=== PATIENT | female | born 1960 | race Two or more races ===

== ENCOUNTER 2020-12-06 04:03 | Day surgery (SDC) | payer OTHER ==
[2020-12-06 07:35] VITALS: BMI 33.0
[2020-12-06] MEDS ORDERED: BUPIVACAINE HCL/PF 0.5% (5MG/ML) 10 ML VIAL ONE (07:42)
[2020-12-06] MEDS ORDERED: LIDOCAINE HCL 1%, 10 MG/ML (20ML VIAL) ONE ×2 (07:43→11:00)
[2020-12-06] MEDS ORDERED: INSULIN REGULAR HUMAN 100 UNITS/ML *VIAL SQ ONE (08:30)
[2020-12-06] MEDS ORDERED: PROMETHAZINE HCL 25 MG/1 ML VIAL IVPUSH PRN (10:37)
[2020-12-06] MEDS ORDERED: ONDANSETRON 4 MG/2 ML VIAL IVPUSH PRN (10:37)
[2020-12-06] MEDS ORDERED: oxyCODONE HCL 5 MG TABLET PO PRN (10:37)
[2020-12-06] MEDS ORDERED: LACTATED RINGERS SOLUTION 1,000 ML IV SCH (10:45)
[2020-12-06] MEDS ORDERED: MIDAZOLAM HCL 2 MG/2 ML SINGLE DOSE VIAL ONE (10:56)
[2020-12-06] MEDS ORDERED: PROPOFOL 20 ML ONE (10:56)
[2020-12-06] MEDS ORDERED: ceFAZolin SODIUM 1 GM VIAL ONE (11:14)
[2020-12-06] MEDS ORDERED: SODIUM CHLORIDE 0.9% P/F 10 ML VIAL IJ ONE (11:14)
[2020-12-06] MEDS ORDERED: ceFAZolin SODIUM 1 GM VIAL IVPB ONE (11:17)
[2020-12-06] MEDS ORDERED: LIDOCAINE HCL 1% PRESERVATIVE FREE - 30ML VIAL IJ ONE ×2 (11:20)
[2020-12-06] MEDS ORDERED: KETOROLAC TROMETHAMINE 30 MG/1 ML VIAL ONE (11:25)
[2020-12-06] MEDS ORDERED: ONDANSETRON 4 MG/2 ML VIAL ONE ×2 (12:15→13:21)
[2020-12-06] MEDS ORDERED: PROMETHAZINE HCL 25 MG/1 ML VIAL ONE (14:15)
[2020-12-06 16:50] VITALS: TEMP 97.8
[2020-12-06 17:42] VITALS: BP 125/85; PULSE 78
== END 2020-12-06 17:30 | disposition home or self-care (01) ==
LOC: JASU-SURG 04:03
PROVIDERS: ATTEND Surgery
PROC: 07B50ZX Excision of Right Axillary Lymphatic, Open Approach, Diagnostic (ICD-10-PCS; principal; 2020-12-06 09:00)
DX: C81.94 Hodgkin lymphoma, unspecified, lymph nodes of axilla and upper limb (principal)
CPT/HCPCS: 82962; 94760

== ENCOUNTER 2022-01-19 16:47 | Emergency (ER) | payer OTHER ==
[2022-01-19 17:12] VITALS: BMI 34.4
[2022-01-19] MEDS ORDERED: ONDANSETRON 4 MG/2 ML VIAL IVPB ONE (18:52)
[2022-01-19] MEDS ORDERED: SODIUM CHLORIDE 0.9% 500 ML INFUS.BAG IV ONE (18:52)
[2022-01-19] MEDS ORDERED: FAMOTIDINE 20 MG/50 ML IVPB 20 MG/50 ML MG IVPB ONE ×2 (18:54→20:37)
[2022-01-19] MEDS ORDERED: ACETAMINOPHEN 1000 MG/100 ML BAG IVPB ONE (18:54)
[2022-01-19] MEDS ORDERED: ACETAMINOPHEN INJECTION 100 ML IVPB ONE (20:37)
[2022-01-19] MEDS ORDERED: ONDANSETRON 4 MG/2 ML VIAL ONE (20:37)
[2022-01-19 21:17] LABS: BASO % 0.3 % (0-2.0); EOS % 1.3 % (0-4.5); HEMATOCRIT 38.5 % (32.4-45.2); HEMOGLOBIN 13.2 GM/dL (10.7-15.3); MCH 24.6 pg (25.7-33.7); MCHC 34.2 g/dl (32.0-36.0); MEAN PLT VOLUME 8.8 fl (7.5-11.1); MONO % 7.2 % (3.8-10.2); NEUT % 56.2 % (42.8-82.8); PLATELET COUNT 184 10^3/uL (134-434); RBC 5.35 M/mm3 (3.60-5.2); WHITE BLOOD COUNT 5.6 K/mm3 (4.0-10.0)
[2022-01-19 21:22] LABS: INR 1.05 (0.83-1.09); PROTHROMBIN TIME (PATIENT) 12.1 SEC (9.7-13.0)
[2022-01-19 21:25] LABS: ACTIVATED PTT 32.4 SECONDS (25.2-36.5)
[2022-01-19 21:34] LABS: CALCIUM 9.3 mg/dL (8.5-10.1)
[2022-01-19 21:36] LABS: ALBUMIN 3.9 g/dl (3.4-5.0); BLOOD UREA NITROGEN 16.6 mg/dL (7-18); MAGNESIUM 1.8 mg/dL (1.8-2.4)
[2022-01-19 21:39] LABS: CREATININE 0.6 mg/dL (0.55-1.3)
[2022-01-19 21:40] LABS: TOT PROT 7.1 g/dl (6.4-8.2)
[2022-01-19 21:41] LABS: BILIRUBIN,TOTAL 1.2 mg/dL (0.2-1)
[2022-01-19 21:43] LABS: LACTIC ACID 2.9 mmol/L (0.4-2.0)
[2022-01-19 23:07] VITALS: BP 143/71; PULSE 84; TEMP 97.8
[2022-01-20 02:14] LABS: URINE APPEARANCE CLEAR; URINE BILIRUBIN NEGATIVE (NEGATIVE); URINE COLOR YELLOW; URINE GLUCOSE (UA) 250 (NEGATIVE); URINE KETONE TRACE (NEGATIVE)
[2022-01-20 02:15] LABS: PH,URINE 5.5 (5.0-8.0); URINE LEUK ESTERASE NEGATIVE (NEGATIVE); URINE NITRITE NEGATIVE (NEGATIVE); URINE PROTEIN TRACE (NEGATIVE)
[2022-01-20 02:22] LABS: EPI CELLS 12.2 /uL (0-25.1); HYALINE CASTS 0.38 /uL (0-3.1); URINE BACTERIA 141.7 /uL (0-1359); URINE WBC 28.3 /uL (0-25.8)
== END 2022-01-20 03:04 | disposition home or self-care (01) ==
LOC: JER 16:47
PROC: 3E033GC Introduction of Other Therapeutic Substance into Peripheral Vein, Percutaneous Approach (ICD-10-PCS; principal; 2022-01-19)
DX: R10.13 Epigastric pain (principal); R11.2 Nausea with vomiting, unspecified
CPT/HCPCS: 0241U-QW; 36415; 71045-TC-FY; 74177-TC; 80053; 81003; 83605; 83690; 83735; 84484; 85025; 85610; 85730; 87086; 93005; 93010; 99285-25; Q9967

== ENCOUNTER 2022-03-29 22:52 | Emergency (ER) | payer OTHER ==
[2022-03-29 23:00] VITALS: BP 151/90; PULSE 88; RESP 18; TEMP 98.1; BMI 35.5
[2022-03-30] MEDS ORDERED: LIDOCAINE VISCOUS 2% ORAL/TOP 15 ML UNIT-DOSE CUP MM ONE (00:15)
[2022-03-30] MEDS ORDERED: LACTATED RINGERS SOLUTION 1000 ML INFUS.BAG IV ONE (00:15)
[2022-03-30] MEDS ORDERED: ACETAMINOPHEN 1000 MG/100 ML BAG IVPB ONE (00:15)
[2022-03-30] MEDS ORDERED: LIDOCAINE HCL 2% (20ML MULTI-DOSE VIAL) ONE (00:43)
[2022-03-30] MEDS ORDERED: ACETAMINOPHEN INJECTION 100 ML IVPB ONE (00:43)
[2022-03-30 01:13] LABS: BASO % 0.2 % (0-2.0); HEMATOCRIT 36.1 % (32.4-45.2); HEMOGLOBIN 12.3 GM/dL (10.7-15.3); LYMPH % 26.5 % (8-40); MCHC 34.2 g/dl (32.0-36.0); MEAN CELL VOLUME 73.3 fl (80-96); MEAN PLT VOLUME 8.6 fl (7.5-11.1); MONO % 6.6 % (3.8-10.2); NEUT % 65.7 % (42.8-82.8); PLATELET COUNT 191 10^3/uL (134-434); RBC 4.93 M/mm3 (3.60-5.2); WHITE BLOOD COUNT 7.8 K/mm3 (4.0-10.0)
[2022-03-30 01:34] LABS: CALCIUM 9.1 mg/dL (8.5-10.1)
[2022-03-30 01:35] LABS: ALBUMIN 3.8 g/dl (3.4-5.0); BLOOD UREA NITROGEN 10.4 mg/dL (7-18)
[2022-03-30 01:38] LABS: CREATININE 0.6 mg/dL (0.55-1.3)
[2022-03-30 01:39] LABS: TOT PROT 6.7 g/dl (6.4-8.2)
[2022-03-30 01:40] LABS: BILIRUBIN,TOTAL 1.2 mg/dL (0.2-1)
== END 2022-03-30 03:13 | disposition home or self-care (01) ==
LOC: JER 22:52
PROC: 3E033GC Introduction of Other Therapeutic Substance into Peripheral Vein, Percutaneous Approach (ICD-10-PCS; principal; 2022-03-29)
DX: R07.0 Pain in throat (principal); R19.7 Diarrhea, unspecified
CPT/HCPCS: 0241U-QW; 36415; 80053; 83690; 85025; 99284-25

== ENCOUNTER 2022-05-30 20:52 | Inpatient (IN) | payer OTHER ==
[2022-05-30] MEDS ORDERED: ONDANSETRON 4 MG/2 ML VIAL IVPUSH ONE (21:52)
[2022-05-30] MEDS ORDERED: morphine CARPU-JECT 4 MG/1 ML DISP.SYRIN IVPUSH ONE (21:52)
[2022-05-30] MEDS ORDERED: ONDANSETRON 4 MG/2 ML VIAL ONE (22:10)
[2022-05-30] MEDS ORDERED: morphine SULFATE 4 MG/ML VIAL ONE (22:10)
[2022-05-30 22:55] LABS: BASO % 0.2 % (0-2.0); EOS % 1.3 % (0-4.5); HEMATOCRIT 36.4 % (32.4-45.2); HEMOGLOBIN 12.2 GM/dL (10.7-15.3); LYMPH % 39.9 % (8-40); MCH 24.3 pg (25.7-33.7); MCHC 33.5 g/dl (32.0-36.0); MEAN CELL VOLUME 72.5 fl (80-96); MEAN PLT VOLUME 8.7 fl (7.5-11.1); MONO % 8.2 % (3.8-10.2); NEUT % 50.4 % (42.8-82.8); PLATELET COUNT 165 10^3/uL (134-434); RBC 5.02 M/mm3 (3.60-5.2); RDW 15.5 % (11.6-15.6); WHITE BLOOD COUNT 4.7 K/mm3 (4.0-10.0)
[2022-05-30 22:58] LABS: INR 1.02 (0.83-1.09); PROTHROMBIN TIME (PATIENT) 11.7 SEC (9.7-13.0)
[2022-05-30 23:00] LABS: ACTIVATED PTT 31.1 SECONDS (25.2-36.5)
[2022-05-30 23:12] LABS: CALCIUM 9.1 mg/dL (8.5-10.1)
[2022-05-30 23:13] LABS: ALBUMIN 3.8 g/dl (3.4-5.0); BLOOD UREA NITROGEN 14.6 mg/dL (7-18)
[2022-05-30 23:16] LABS: CREATININE 0.7 mg/dL (0.55-1.3)
[2022-05-30 23:17] LABS: TOT PROT 6.5 g/dl (6.4-8.2)
[2022-05-30 23:34] LABS: BILIRUBIN,TOTAL 0.9 mg/dL (0.2-1); LACTIC ACID 2.8 mmol/L (0.4-2.0)
[2022-05-30 23:37] LABS: EPI CELLS >36 /uL (0-25.1); HYALINE CASTS 2 /uL (0-3.1); URINE APPEARANCE CLEAR; URINE BACTERIA 60 /uL (0-1359); URINE BILIRUBIN NEGATIVE (NEGATIVE); URINE COLOR YELLOW; URINE GLUCOSE (UA) NEGATIVE (NEGATIVE); URINE KETONE TRACE (NEGATIVE); URINE LEUK ESTERASE TRACE (NEGATIVE); URINE NITRITE NEGATIVE (NEGATIVE); URINE PROTEIN TRACE (NEGATIVE); URINE RBC 3 /uL (0-23.9); URINE WBC 23 /uL (0-25.8)
[2022-05-31] MEDS ORDERED: SODIUM CHLORIDE 1,000 ML IV STA (00:59)
[2022-05-31] MEDS ORDERED: PANTOPRAZOLE 40 MG TABLET PO ONE ×2 (06:00→09:20)
[2022-05-31] MEDS: SODIUM CHLORIDE 1,000 ML IV SCH (06:11)
[2022-05-31] MEDS ORDERED: INSULIN SLIDING SCALE (NOVOLOG) 1 VIAL SQ SCH (07:00)
[2022-05-31 07:29] LABS: BASO % 0.5 % (0-2.0); HEMATOCRIT 33.5 % (32.4-45.2); HEMOGLOBIN 11.1 GM/dL (10.7-15.3); LYMPH % 47.2 % (8-40); MCH 24.1 pg (25.7-33.7); MCHC 33.2 g/dl (32.0-36.0); MEAN CELL VOLUME 72.7 fl (80-96); MEAN PLT VOLUME 8.6 fl (7.5-11.1); MONO % 8.1 % (3.8-10.2); NEUT % 42.2 % (42.8-82.8); PLATELET COUNT 156 10^3/uL (134-434); RBC 4.61 M/mm3 (3.60-5.2); RDW 15.5 % (11.6-15.6); WHITE BLOOD COUNT 3.9 K/mm3 (4.0-10.0)
[2022-05-31 08:06] LABS: ALBUMIN 3.2 g/dl (3.4-5.0); BLOOD UREA NITROGEN 11.4 mg/dL (7-18); CALCIUM 8.2 mg/dL (8.5-10.1)
[2022-05-31 08:09] LABS: CREATININE 0.4 mg/dL (0.55-1.3); PHOSPHOROUS 4.5 mg/dL (2.5-4.9)
[2022-05-31 08:11] LABS: BILIRUBIN,TOTAL 0.9 mg/dL (0.2-1); TOT PROT 5.6 g/dl (6.4-8.2)
[2022-05-31] MEDS: INSULIN SLIDING SCALE (NOVOLOG) 1 VIAL SQ SCH ×3 (09:14→17:46)
[2022-05-31] MEDS ORDERED: ENOXAPARIN NA (PORCINE) 40 MG/0.4 ML DISP.SYRIN SQ ONE (09:20)
[2022-05-31] MEDS ORDERED: CEFTRIAXONE 1 GM/50 ML BAG ONE (09:21)
[2022-05-31] MEDS: CEFTRIAXONE 1 GM in DEXTROSE 5%-WATER - 50 ML IVPB SCH (09:36)
[2022-05-31] MEDS: ENOXAPARIN NA (PORCINE) 40 MG/0.4 ML DISP.SYRIN SQ SCH (09:36)
[2022-05-31] MEDS: PANTOPRAZOLE 40 MG TABLET PO SCH (09:36)
[2022-05-31] MEDS ORDERED: IRON SUCROSE INJECTION 200 MG in SODIUM CHLORIDE 90 ML IVPB ONE (15:00)
[2022-05-31] MEDS ORDERED: CYCLOBENZAPRINE HCL 5 MG TABLET PO PRN (19:04)
[2022-05-31] MEDS ORDERED: LIDOCAINE 5% TOPICAL PATCH ONE (19:56)
[2022-05-31] MEDS: LIDOCAINE 5% TOPICAL PATCH TP SCH (20:08)
[2022-05-31] MEDS: LIDOCAINE PATCH REMOVAL MC SCH (21:51)
[2022-06-01 00:39] VITALS: BMI 26.9
[2022-06-01] MEDS: INSULIN SLIDING SCALE (NOVOLOG) 1 VIAL SQ SCH ×5 (01:44→21:32)
[2022-06-01] MEDS: SODIUM CHLORIDE 1,000 ML IV SCH (06:01)
[2022-06-01] MEDS: CEFTRIAXONE 1 GM in DEXTROSE 5%-WATER - 50 ML IVPB SCH (09:51)
[2022-06-01] MEDS: PANTOPRAZOLE 40 MG TABLET PO SCH (09:51)
[2022-06-01] MEDS: ENOXAPARIN NA (PORCINE) 40 MG/0.4 ML DISP.SYRIN SQ SCH (09:52)
[2022-06-01] MEDS: LIDOCAINE 5% TOPICAL PATCH TP SCH (09:52)
[2022-06-01 11:13] LABS: BASO % 0.4 % (0-2.0); EOS % 2.2 % (0-4.5); HEMATOCRIT 39.4 % (32.4-45.2); HEMOGLOBIN 12.7 GM/dL (10.7-15.3); LYMPH % 42.5 % (8-40); MCH 23.4 pg (25.7-33.7); MCHC 32.1 g/dl (32.0-36.0); MEAN CELL VOLUME 72.8 fl (80-96); MEAN PLT VOLUME 9.4 fl (7.5-11.1); MONO % 8.3 % (3.8-10.2); NEUT % 46.6 % (42.8-82.8); PLATELET COUNT 188 10^3/uL (134-434); RBC 5.42 M/mm3 (3.60-5.2); RDW 15.7 % (11.6-15.6); WHITE BLOOD COUNT 3.8 K/mm3 (4.0-10.0)
[2022-06-01 11:23] LABS: INR 1.05 (0.83-1.09); PROTHROMBIN TIME (PATIENT) 12.1 SEC (9.7-13.0)
[2022-06-01 11:50] LABS: BLOOD UREA NITROGEN 8.4 mg/dL (7-18)
[2022-06-01 11:52] LABS: BILIRUBIN,DIRECT 0.2 mg/dL (0.0-0.2)
[2022-06-01 11:53] LABS: CREATININE 0.5 mg/dL (0.55-1.3)
[2022-06-01 11:54] LABS: BILIRUBIN,TOTAL 1.5 mg/dL (0.2-1); TOT PROT 6.7 g/dl (6.4-8.2)
[2022-06-01 12:00] LABS: ALBUMIN 3.9 g/dl (3.4-5.0); CALCIUM 9.7 mg/dL (8.5-10.1)
[2022-06-01 12:05] LABS: ERYTHROCYTE SEDIMENTATION RATE 7 mm/hr (0-30)
[2022-06-01] MEDS ORDERED: IRON SUCROSE INJECTION 200 MG in SODIUM CHLORIDE 90 ML IVPB ONE (13:00)
[2022-06-01] MEDS ORDERED: ACETAMINOPHEN 325 MG TABLET (FP) PO PRN (15:37)
[2022-06-01] MEDS: LOSARTAN POTASSIUM 50 MG TABLET PO SCH (16:01)
[2022-06-01] MEDS: LIDOCAINE PATCH REMOVAL MC SCH (21:31)
[2022-06-02] MEDS: SODIUM CHLORIDE 1,000 ML IV SCH ×2 (06:02→22:13)
[2022-06-02] MEDS: INSULIN SLIDING SCALE (NOVOLOG) 1 VIAL SQ SCH ×4 (06:03→21:26)
[2022-06-02] MEDS ORDERED: KETAMINE HCL 500 MG/10 ML VIAL ONE (07:48)
[2022-06-02] MEDS ORDERED: TETRACAINE/BENZOCAINE/BUTAMBEN 20 GM SPR TP ONE (07:48)
[2022-06-02 08:42] LABS: EOS % 3.2 % (0-4.5); HEMATOCRIT 36.2 % (32.4-45.2); HEMOGLOBIN 12.1 GM/dL (10.7-15.3); LYMPH % 40.8 % (8-40); MCHC 33.5 g/dl (32.0-36.0); MEAN CELL VOLUME 71.5 fl (80-96); MONO % 10.2 % (3.8-10.2); NEUT % 44.8 % (42.8-82.8); PLATELET COUNT 178 10^3/uL (134-434); RBC 5.07 M/mm3 (3.60-5.2); RDW 15.5 % (11.6-15.6); WHITE BLOOD COUNT 3.4 K/mm3 (4.0-10.0)
[2022-06-02 08:56] LABS: INR 1.07 (0.83-1.09); PROTHROMBIN TIME (PATIENT) 12.3 SEC (9.7-13.0)
[2022-06-02 09:16] LABS: CALCIUM 8.7 mg/dL (8.5-10.1)
[2022-06-02 09:17] LABS: ALBUMIN 3.7 g/dl (3.4-5.0); BLOOD UREA NITROGEN 9.6 mg/dL (7-18)
[2022-06-02 09:20] LABS: BILIRUBIN,DIRECT 0.4 mg/dL (0.0-0.2); CREATININE 0.5 mg/dL (0.55-1.3)
[2022-06-02 09:21] LABS: TOT PROT 6.4 g/dl (6.4-8.2)
[2022-06-02 09:22] LABS: BILIRUBIN,TOTAL 1.1 mg/dL (0.2-1)
[2022-06-02] MEDS: PANTOPRAZOLE 40 MG TABLET PO SCH (12:13)
[2022-06-02] MEDS: LOSARTAN POTASSIUM 50 MG TABLET PO SCH (12:13)
[2022-06-02] MEDS: CEFTRIAXONE 1 GM in DEXTROSE 5%-WATER - 50 ML IVPB SCH (12:14)
[2022-06-02] MEDS: LIDOCAINE 5% TOPICAL PATCH TP SCH (12:15)
[2022-06-02] MEDS ORDERED: traMADol HCL 50 MG TABLET PO PRN (14:35)
[2022-06-02] MEDS ORDERED: ONDANSETRON 4 MG/2 ML VIAL IVPUSH ONE (21:26)
[2022-06-02] MEDS: LIDOCAINE PATCH REMOVAL MC SCH (21:36)
[2022-06-03] MEDS: ACETAMINOPHEN 325 MG TABLET (FP) PO PRN ×2 (02:38→21:31)
[2022-06-03] MEDS: SODIUM CHLORIDE 1,000 ML IV SCH (05:47)
[2022-06-03] MEDS: INSULIN SLIDING SCALE (NOVOLOG) 1 VIAL SQ SCH ×4 (06:21→22:09)
[2022-06-03 10:28] LABS: BASO % 0.5 % (0-2.0); HEMATOCRIT 34.9 % (32.4-45.2); HEMOGLOBIN 11.7 GM/dL (10.7-15.3); LYMPH % 43.4 % (8-40); MCH 24.4 pg (25.7-33.7); MCHC 33.5 g/dl (32.0-36.0); MEAN CELL VOLUME 72.8 fl (80-96); MEAN PLT VOLUME 8.6 fl (7.5-11.1); MONO % 9.8 % (3.8-10.2); NEUT % 43.3 % (42.8-82.8); PLATELET COUNT 153 10^3/uL (134-434); RDW 15.6 % (11.6-15.6); WHITE BLOOD COUNT 3.6 K/mm3 (4.0-10.0)
[2022-06-03] MEDS: LOSARTAN POTASSIUM 50 MG TABLET PO SCH (10:37)
[2022-06-03] MEDS: ENOXAPARIN NA (PORCINE) 40 MG/0.4 ML DISP.SYRIN SQ SCH (10:37)
[2022-06-03] MEDS: PANTOPRAZOLE 40 MG TABLET PO SCH (10:38)
[2022-06-03] MEDS: LIDOCAINE 5% TOPICAL PATCH TP SCH (10:49)
[2022-06-03 10:54] LABS: BLOOD UREA NITROGEN 8.3 mg/dL (7-18); CALCIUM 8.7 mg/dL (8.5-10.1)
[2022-06-03 10:55] LABS: ALBUMIN 3.4 g/dl (3.4-5.0)
[2022-06-03 10:58] LABS: BILIRUBIN,DIRECT 0.4 mg/dL (0.0-0.2)
[2022-06-03 10:59] LABS: CREATININE 0.7 mg/dL (0.55-1.3); TOT PROT 5.8 g/dl (6.4-8.2)
[2022-06-03] MEDS: CEFTRIAXONE 1 GM in DEXTROSE 5%-WATER - 50 ML IVPB SCH (11:29)
[2022-06-03] MEDS: LIDOCAINE PATCH REMOVAL MC SCH (21:31)
[2022-06-04] MEDS: INSULIN SLIDING SCALE (NOVOLOG) 1 VIAL SQ SCH ×4 (06:52→21:39)
[2022-06-04 10:52] LABS: ALBUMIN 3.6 g/dl (3.4-5.0); BLOOD UREA NITROGEN 8.8 mg/dL (7-18); CALCIUM 8.8 mg/dL (8.5-10.1)
[2022-06-04 10:55] LABS: CREATININE 0.6 mg/dL (0.55-1.3)
[2022-06-04 10:57] LABS: BILIRUBIN,TOTAL 0.8 mg/dL (0.2-1); TOT PROT 6.1 g/dl (6.4-8.2)
[2022-06-04] MEDS: PANTOPRAZOLE 40 MG TABLET PO SCH (11:34)
[2022-06-04] MEDS: ENOXAPARIN NA (PORCINE) 40 MG/0.4 ML DISP.SYRIN SQ SCH (11:35)
[2022-06-04] MEDS: LOSARTAN POTASSIUM 50 MG TABLET PO SCH (11:35)
[2022-06-04] MEDS: LIDOCAINE 5% TOPICAL PATCH TP SCH (11:35)
[2022-06-04 11:52] LABS: EOS % 3.2 % (0-4.5); HEMOGLOBIN 12.4 G/dL (10.7-15.3); LYMPH % 45.5 % (8-40); MCH 24.4 pg (25.7-33.7); MCHC 33.6 g/dl (32.0-36.0); MEAN CELL VOLUME 72.5 fl (80-96); MEAN PLT VOLUME 8.9 fl (7.5-11.1); MONO % 10.1 % (3.8-10.2); NEUT % 40.7 % (42.8-82.8); PLATELET COUNT 171 10^3/uL (134-434); RDW 15.7 % (11.6-15.6); WHITE BLOOD COUNT 4.2 10^3/uL (4.0-10.8)
[2022-06-04 11:53] LABS: BASO % 0.5 % (0-2.0)
[2022-06-04] MEDS ORDERED: IBUPROFEN 600 MG TABLET (FP) PO PRN (11:58)
[2022-06-04] MEDS ORDERED: SODIUM CHLORIDE 1,000 ML IV SCH (12:15)
[2022-06-04] MEDS: CEFTRIAXONE 1 GM in DEXTROSE 5%-WATER - 50 ML IVPB SCH (12:58)
[2022-06-04 15:55] VITALS: RESP 18
[2022-06-04] MEDS: LIDOCAINE PATCH REMOVAL MC SCH (21:17)
[2022-06-05] MEDS: INSULIN SLIDING SCALE (NOVOLOG) 1 VIAL SQ SCH ×2 (06:52→11:18)
[2022-06-05 08:54] VITALS: BP 167/95; PULSE 87; TEMP 98
[2022-06-05] MEDS: ENOXAPARIN NA (PORCINE) 40 MG/0.4 ML DISP.SYRIN SQ SCH (09:37)
[2022-06-05] MEDS: CEFTRIAXONE 1 GM in DEXTROSE 5%-WATER - 50 ML IVPB SCH (09:37)
[2022-06-05] MEDS: PANTOPRAZOLE 40 MG TABLET PO SCH (09:38)
[2022-06-05] MEDS: LOSARTAN POTASSIUM 50 MG TABLET PO SCH (09:38)
[2022-06-05] MEDS: LIDOCAINE 5% TOPICAL PATCH TP SCH (09:39)
[2022-06-05 11:08] LABS: BASO % 0.7 % (0-2.0); EOS % 2.2 % (0-4.5); HEMATOCRIT 37.6 % (32.4-45.2); HEMOGLOBIN 12.5 GM/dL (10.7-15.3); LYMPH % 44.4 % (8-40); MCH 24.4 pg (25.7-33.7); MCHC 33.3 g/dl (32.0-36.0); MEAN CELL VOLUME 73.1 fl (80-96); MEAN PLT VOLUME 8.8 fl (7.5-11.1); MONO % 8.4 % (3.8-10.2); NEUT % 44.3 % (42.8-82.8); PLATELET COUNT 155 10^3/uL (134-434); RBC 5.14 M/mm3 (3.60-5.2); RDW 15.8 % (11.6-15.6); WHITE BLOOD COUNT 3.7 K/mm3 (4.0-10.0)
[2022-06-05 11:26] LABS: ALBUMIN 3.7 g/dl (3.4-5.0); BLOOD UREA NITROGEN 8.8 mg/dL (7-18); CALCIUM 8.9 mg/dL (8.5-10.1); MAGNESIUM 1.9 mg/dL (1.8-2.4)
[2022-06-05 11:29] LABS: CREATININE 0.6 mg/dL (0.55-1.3); PHOSPHOROUS 3.2 mg/dL (2.5-4.9)
[2022-06-05 11:30] LABS: BILIRUBIN,TOTAL 1.1 mg/dL (0.2-1)
[2022-06-05 11:31] LABS: TOT PROT 6.1 g/dl (6.4-8.2)
== END 2022-06-05 14:45 | disposition home or self-care (01) | DRG 241 ==
LOC: JER 20:52 → JERBED 05-31 01:00 → OBSVTOIN 05-31 03:39 → JERBED 05-31 22:20 → J5S 05-31 23:15
PROVIDERS: ADMIT Internal Medicine; ATTEND Internal Medicine
PROC: 0DB68ZX Excision of Stomach, Via Natural or Artificial Opening Endoscopic, Diagnostic (ICD-10-PCS; 2022-06-02)
PROC: 0DB98ZX Excision of Duodenum, Via Natural or Artificial Opening Endoscopic, Diagnostic (ICD-10-PCS; principal; 2022-06-02 10:00)
DX: K29.80 Duodenitis without bleeding (principal); I10 Essential (primary) hypertension; E78.5 Hyperlipidemia, unspecified; Z79.84 Long term (current) use of oral hypoglycemic drugs; Z86.16 Personal history of COVID-19; C85.90 Non-Hodgkin lymphoma, unspecified, unspecified site; E11.65 Type 2 diabetes mellitus with hyperglycemia; E66.9 Obesity, unspecified; Z68.26 Body mass index [BMI] 26.0-26.9, adult; R79.89 Other specified abnormal findings of blood chemistry; K29.70 Gastritis, unspecified, without bleeding; R16.0 Hepatomegaly, not elsewhere classified
CPT/HCPCS: 36415; 71046-TC-FY; 72100-TC-FY; 74177-TC; 74181-TC; 76700-TC; 80048; 80053; 80061; 80076; 81003; 82550; 82728; 82962; 82977; 83036; 83516; 83540; 83550; 83605; 83615; 83690; 83735; 84100; 84443; 85025; 85610; 85651; 85730; 86038; 86140; 86705; 86803; 86850; 86900; 86901; 87086; 87338; 87340; 87517; 87522; 88305-TC; 93005; 93010; 97116-GP; 97161-GP; 99285-25; C9803-CS; G0378; J1756; Q9967; U0003; U0005

== ENCOUNTER 2023-04-16 21:52 | Emergency (ER) | payer OTHER ==
[2023-04-16 22:03] VITALS: BP 114/77; PULSE 108; RESP 18; TEMP 98.3; BMI 28.3
[2023-04-16 23:22] LABS: BASO % 0.3 % (0-2.0); EOS % 0.4 % (0-4.5); HEMATOCRIT 35.4 % (32.4-45.2); HEMOGLOBIN 12.1 GM/dL (10.7-15.3); LYMPH % 39.6 % (8-40); MCH 25.2 pg (25.7-33.7); MCHC 34.3 g/dl (32.0-36.0); MEAN CELL VOLUME 73.5 fl (80-96); MEAN PLT VOLUME 8.6 fl (7.5-11.1); MONO % 8.1 % (3.8-10.2); NEUT % 51.6 % (42.8-82.8); PLATELET COUNT 162 10^3/uL (134-434); RBC 4.81 M/mm3 (3.60-5.2); RDW 15.2 % (11.6-15.6); WHITE BLOOD COUNT 5.5 K/mm3 (4.0-10.0)
[2023-04-16 23:30] LABS: INR 1.04 (0.83-1.09); PROTHROMBIN TIME (PATIENT) 12.1 SEC (9.7-13.0)
[2023-04-16 23:32] LABS: ACTIVATED PTT 31.3 SECONDS (25.2-36.5)
[2023-04-16 23:47] LABS: POTASSIUM 4.1 mmol/L (3.5-5.1)
[2023-04-16 23:49] LABS: CALCIUM 8.9 mg/dL (8.5-10.1)
[2023-04-16 23:50] LABS: ALBUMIN 3.6 g/dl (3.4-5.0); BLOOD UREA NITROGEN 18.1 mg/dL (7-18)
[2023-04-16 23:53] LABS: CREATININE 0.9 mg/dL (0.55-1.3); PHOSPHOROUS 3.6 mg/dL (2.5-4.9); URIC ACID 5.4 mg/dL (2.6-7.2)
[2023-04-16 23:54] LABS: TOT PROT 6.3 g/dl (6.4-8.2)
[2023-04-16 23:55] LABS: BILIRUBIN,TOTAL 1.3 mg/dL (0.2-1)
[2023-04-17 00:14] LABS: ERYTHROCYTE SEDIMENTATION RATE 11 mm/hr (0-30)
[2023-04-17] MEDS ORDERED: ACETAMINOPHEN 325 MG TABLET (FP) PO ONE (00:34)
[2023-04-17] MEDS ORDERED: ACETAMINOPHEN 325 MG TABLET (FP) ONE (01:06)
== END 2023-04-17 01:12 | disposition home or self-care (01) ==
LOC: JER 21:52
DX: M79.601 Pain in right arm (principal); G89.3 Neoplasm related pain (acute) (chronic)
CPT/HCPCS: 36415; 80053; 83615; 84100; 84550; 85025; 85610; 85651; 85730; 86140; 99285-25

== ENCOUNTER 2024-02-20 13:39 | Observation (INO) | payer OTHER ==
[2024-02-20 14:54] LABS: HEMATOCRIT 33.4 % (32.4-45.2); HEMOGLOBIN 11.5 GM/dL (10.7-15.3); MCH 28.9 pg (25.7-33.7); MCHC 34.2 g/dl (32.0-36.0); MEAN CELL VOLUME 84.4 fl (80-96); MEAN PLT VOLUME 8.7 fl (7.5-11.1); PLATELET COUNT 118 10^3/uL (134-434); RBC 3.96 M/mm3 (3.60-5.2); RDW 14.1 % (11.6-15.6); WHITE BLOOD COUNT 3.7 K/mm3 (4.0-10.0)
[2024-02-20 15:01] LABS: INR 0.96 (0.83-1.09); PROTHROMBIN TIME (PATIENT) 10.9 SEC (9.7-13.0)
[2024-02-20 15:04] LABS: ACTIVATED PTT 33.2 SECONDS (25.2-36.5)
[2024-02-20] MEDS ORDERED: ACETAMINOPHEN INJECTION 100 ML IVPB ONE (15:31)
[2024-02-20] MEDS ORDERED: LIDOCAINE 4% PATCH TP ONE (15:32)
[2024-02-20] MEDS: SODIUM CHLORIDE 1,000 ML IV STA (15:38)
[2024-02-20] MEDS: LIDOCAINE 4% PATCH TP ONE (15:39)
[2024-02-20] MEDS: ACETAMINOPHEN 1000 MG/100 ML BAG IVPB ONE (15:39)
[2024-02-20 15:51] LABS: EPI CELLS 5 /uL (0-25.1); HYALINE CASTS 0 /uL (0-3.1); URINE APPEARANCE CLEAR; URINE BACTERIA 115 /uL (0-1359); URINE BILIRUBIN NEGATIVE (NEGATIVE); URINE COLOR YELLOW; URINE GLUCOSE (UA) TRACE (NEGATIVE); URINE KETONE NEGATIVE (NEGATIVE); URINE LEUK ESTERASE NEGATIVE (NEGATIVE); URINE NITRITE NEGATIVE (NEGATIVE); URINE PROTEIN 1+ (NEGATIVE); URINE RBC 4 /uL (0-23.9); URINE UROBILINOGEN 0.2 mg/dL (0.2-1.0); URINE WBC 6 /uL (0-25.8)
[2024-02-20 15:59] LABS: CALCIUM 9.7 mg/dL (8.5-10.1)
[2024-02-20 16:00] LABS: BLOOD UREA NITROGEN 25.6 mg/dL (7-18); MAGNESIUM 2.1 mg/dL (1.8-2.4)
[2024-02-20 16:03] LABS: CREATININE 0.8 mg/dL (0.55-1.3); PHOSPHOROUS 3.3 mg/dL (2.5-4.9)
[2024-02-20 16:05] LABS: BILIRUBIN,TOTAL 0.8 mg/dL (0.2-1); TOT PROT 6.9 g/dl (6.4-8.2)
[2024-02-20 16:22] LABS: ANISOCYTOSIS 1+; MACROCYTOSIS 0; OVALOCYTE 1+
[2024-02-20] MEDS ORDERED: levETIRAcetam 500 MG TABLET (FP) PO ONE (22:30)
[2024-02-20] MEDS: LIDOCAINE PATCH REMOVAL MC SCH (22:43)
[2024-02-20] MEDS: levETIRAcetam 500 MG TABLET (FP) PO SCH (22:43)
[2024-02-21 03:31] VITALS: BMI 27.3
[2024-02-21] MEDS: SODIUM CHLORIDE 1,000 ML IV SCH (05:50)
[2024-02-21 06:34] VITALS: BP 113/79; PULSE 18; RESP 93; TEMP 98.6
[2024-02-21] MEDS: GABAPENTIN 300 MG CAPSULE PO SCH (06:34)
[2024-02-21] MEDS: INSULIN ASPART SLIDING SCALE (NOVOLOG) 1 VIAL SQ SCH (06:43)
[2024-02-21 09:31] LABS: HEMATOCRIT 30.4 % (32.4-45.2); HEMOGLOBIN 10.6 GM/dL (10.7-15.3); MCHC 34.8 g/dl (32.0-36.0); MEAN CELL VOLUME 83.4 fl (80-96); PLATELET COUNT 107 10^3/uL (134-434); RBC 3.64 M/mm3 (3.60-5.2); RDW 13.8 % (11.6-15.6); WHITE BLOOD COUNT 2.9 K/mm3 (4.0-10.0)
[2024-02-21 09:40] LABS: POTASSIUM 3.6 mmol/L (3.5-5.1)
[2024-02-21 09:43] LABS: ALBUMIN 3.5 g/dl (3.4-5.0); BLOOD UREA NITROGEN 18.6 mg/dL (7-18); CALCIUM 8.9 mg/dL (8.5-10.1)
[2024-02-21 09:45] LABS: CREATININE 0.7 mg/dL (0.55-1.3)
[2024-02-21 09:49] LABS: BILIRUBIN,TOTAL 0.8 mg/dL (0.2-1)
[2024-02-21] MEDS: PANTOPRAZOLE 40 MG TABLET PO SCH (10:08)
[2024-02-21] MEDS: ENOXAPARIN NA (PORCINE) 40 MG/0.4 ML DISP.SYRIN SQ SCH (10:08)
[2024-02-21] MEDS: LOSARTAN POTASSIUM 50 MG TABLET PO SCH (10:08)
[2024-02-21] MEDS: valACYclovir HCL 500 MG TABLET (FP) PO SCH (10:08)
[2024-02-21 12:14] LABS: URINE AMPHETAMINES NEGATIVE (NEGATIVE)
[2024-02-21 12:16] LABS: COCAINE, UR NEGATIVE (NEGATIVE); METHADONE, UR NEGATIVE (NEGATIVE); PHENCYCLIDINE,URINE NEGATIVE (NEGATIVE); URINE BARBITURATES NEGATIVE (NEGATIVE); URINE BENZODIAZEPINES NEGATIVE (NEGATIVE)
[2024-02-21 12:20] LABS: OPIATES, URI NEGATIVE (NEGATIVE)
[2024-02-21] MEDS ORDERED: ATORVASTATIN CA 10 MG TABLET (FP) PO SCH (22:00)
== END 2024-02-21 19:25 | disposition left against medical advice (07) ==
LOC: JER 13:39 → INTOOBSV 23:00 → UNDOADMOB 23:00 → JERBED 23:00 → J8W 02-21 00:46 → JERBED 02-21 12:25 → J8W 02-21 12:25
PROVIDERS: ADMIT Internal Medicine; ATTEND Internal Medicine
PROC: 3E033NZ Introduction of Analgesics, Hypnotics, Sedatives into Peripheral Vein, Percutaneous Approach (ICD-10-PCS; principal; 2024-02-21)
PROC: 3E023GC Introduction of Other Therapeutic Substance into Muscle, Percutaneous Approach (ICD-10-PCS; 2024-02-21)
DX: R55 Syncope and collapse (principal); R56.9 Unspecified convulsions; C85.10 Unspecified B-cell lymphoma, unspecified site; E11.9 Type 2 diabetes mellitus without complications; I10 Essential (primary) hypertension; E78.5 Hyperlipidemia, unspecified; N20.0 Calculus of kidney; Z86.711 Personal history of pulmonary embolism; Z86.718 Personal history of other venous thrombosis and embolism
CPT/HCPCS: 0241U-QW; 36415; 70450-TC; 70553-TC; 71045-TC-FY; 72131-TC; 80053; 80307; 81003; 82550; 82962; 83735; 84100; 84484; 85025; 85027; 85379; 85610; 85730; 87086; 93005; 93010; 95816; 96361; 96372; 96374; 99285-25; G0378; J0131

== ENCOUNTER 2024-08-10 08:56 | Inpatient (IN) | payer OTHER ==
[2024-08-10 09:01] VITALS: BMI 26.2
[2024-08-10 11:00] LABS: HEMATOCRIT 31.4 % (32.4-45.2); HEMOGLOBIN 10.6 GM/dL (10.7-15.3); MCHC 33.6 g/dl (32.0-36.0); MEAN CELL VOLUME 80.4 fl (80-96); MEAN PLT VOLUME 8.8 fl (7.5-11.1); PLATELET COUNT 110 10^3/uL (134-434); RBC 3.91 M/mm3 (3.60-5.2); RDW 14.8 % (11.6-15.6); WHITE BLOOD COUNT 3.9 K/mm3 (4.0-10.0)
[2024-08-10 11:06] LABS: INR 0.96 (0.83-1.09)
[2024-08-10 11:28] LABS: POTASSIUM 4.5 mmol/L (3.5-5.1)
[2024-08-10 11:30] LABS: CALCIUM 9.5 mg/dL (8.5-10.1)
[2024-08-10 11:31] LABS: ALBUMIN 3.7 g/dl (3.4-5.0); BLOOD UREA NITROGEN 16.7 mg/dL (7-18)
[2024-08-10 11:34] LABS: CREATININE 0.9 mg/dL (0.55-1.3)
[2024-08-10 11:35] LABS: BILIRUBIN,TOTAL 0.7 mg/dL (0.2-1)
[2024-08-10 11:36] LABS: TOT PROT 6.5 g/dl (6.4-8.2)
[2024-08-10] MEDS ORDERED: ACETAMINOPHEN INJECTION 100 ML ONE (17:00)
[2024-08-10] MEDS: SODIUM CHLORIDE 500 ML IV STA (17:09)
[2024-08-10] MEDS: ACETAMINOPHEN 1000 MG/100 ML BAG IVPB ONE (17:09)
[2024-08-10] MEDS ORDERED: CEFTRIAXONE 1 G/50 ML PREMIX 50 ML IVPB ONE (20:30)
[2024-08-10] MEDS ORDERED: AZITHROMYCIN IVPB 500 MG/250 ML BAG IVPB ONE (20:31)
[2024-08-10] MEDS ORDERED: ACETAMINOPHEN 325 MG TABLET (FP) PO PRN (21:17)
[2024-08-10] MEDS ORDERED: DOCUSATE SODIUM 100 MG CAPSULE (FP) PO PRN (21:17)
[2024-08-10] MEDS: AZITHROMYCIN IVPB 500 MG in DEXTROSE 5%-WATER - 250 ML IVPB ONE (21:51)
[2024-08-10] MEDS: SODIUM CHLORIDE 0.45% 1,000 ML IV SCH (21:51)
[2024-08-10] MEDS ORDERED: INSULIN ASPART SLIDING SCALE (NOVOLOG) 1 VIAL SQ ONE (22:33)
[2024-08-10] MEDS: INSULIN ASPART SLIDING SCALE (NOVOLOG) 1 VIAL SQ SCH (22:41)
[2024-08-11] MEDS ORDERED: BENZONATATE 200 MG CAPSULE PO PRN (00:44)
[2024-08-11] MEDS: ACETAMINOPHEN 1000 MG/100 ML BAG IVPB ONE (01:16)
[2024-08-11] MEDS: guaiFENesin 600 MG TABLET.ER (FP) PO SCH (01:39)
[2024-08-11 07:39] LABS: HEMATOCRIT 29.8 % (32.4-45.2); HEMOGLOBIN 10.2 GM/dL (10.7-15.3); MCH 27.3 pg (25.7-33.7); MCHC 34.3 g/dl (32.0-36.0); MEAN CELL VOLUME 79.6 fl (80-96); MEAN PLT VOLUME 9.2 fl (7.5-11.1); PLATELET COUNT 113 10^3/uL (134-434); RBC 3.75 M/mm3 (3.60-5.2); RDW 14.3 % (11.6-15.6); WHITE BLOOD COUNT 4.1 K/mm3 (4.0-10.0)
[2024-08-11 07:52] LABS: POTASSIUM 3.6 mmol/L (3.5-5.1)
[2024-08-11 07:54] LABS: CALCIUM 8.9 mg/dL (8.5-10.1)
[2024-08-11 07:55] LABS: ALBUMIN 3.4 g/dl (3.4-5.0); BLOOD UREA NITROGEN 12.4 mg/dL (7-18)
[2024-08-11 07:58] LABS: CREATININE 0.8 mg/dL (0.55-1.3); PHOSPHOROUS 3.2 mg/dL (2.5-4.9)
[2024-08-11 07:59] LABS: TOT PROT 6.2 g/dl (6.4-8.2)
[2024-08-11] MEDS ORDERED: PANTOPRAZOLE 40 MG TABLET PO ONE ×2 (10:08→10:18)
[2024-08-11] MEDS ORDERED: MULTIVITAMINS (DAILY MVI) TABLET (FP) ONE ×2 (10:08→10:18)
[2024-08-11] MEDS ORDERED: ENOXAPARIN NA (PORCINE) 40 MG/0.4 ML DISP.SYRIN SQ ONE (10:09)
[2024-08-11] MEDS: MULTIVITAMINS (DAILY MVI) TABLET (FP) PO SCH (10:11)
[2024-08-11] MEDS: PANTOPRAZOLE 40 MG TABLET PO SCH (10:11)
[2024-08-11] MEDS: ENOXAPARIN NA (PORCINE) 40 MG/0.4 ML DISP.SYRIN SQ SCH (10:11)
[2024-08-11 11:47] VITALS: BP 126/76; PULSE 91; RESP 18; TEMP 98.3
[2024-08-11 11:57] LABS: ANISOCYTOSIS 1+; MACROCYTOSIS 0; OVALOCYTE 1+; TARGET CELLS 1+
[2024-08-11] MEDS ORDERED: methylPREDNISolone NA SUCC 40 MG/1 ML VIAL ONE (11:58)
[2024-08-11] MEDS: methylPREDNISolone NA SUCC 40 MG/1 ML VIAL IVPUSH SCH (11:59)
[2024-08-11] MEDS ORDERED: ALBUTEROL SO4 2.5/IPRATROPIUM 0.5 INH SOL 3 ML VIAL.NEB. NEB ONE ×2 (12:00→16:53)
[2024-08-11] MEDS: ALBUTEROL SO4 2.5/IPRATROPIUM 0.5 INH SOL 3 ML VIAL.NEB. NEB SCH (12:00)
[2024-08-11] MEDS: BUDESONIDE/FORMETEROL FUMARATE 160/4.5 mcg INHALER IH SCH (12:22)
[2024-08-11 12:29] LABS: ANISOCYTOSIS 0; MACROCYTOSIS 0
[2024-08-11] MEDS ORDERED: GABAPENTIN 300 MG CAPSULE ONE (15:05)
[2024-08-11] MEDS: GABAPENTIN 300 MG CAPSULE PO SCH (15:07)
== END 2024-08-11 20:59 | disposition left against medical advice (07) | DRG 137 ==
LOC: JER 08:56 → JERBED 20:32
PROVIDERS: ADMIT Internal Medicine; ATTEND Family Medicine
DX: U07.1 COVID-19 (principal); C85.10 Unspecified B-cell lymphoma, unspecified site; R16.1 Splenomegaly, not elsewhere classified; D64.9 Anemia, unspecified; E11.9 Type 2 diabetes mellitus without complications; I10 Essential (primary) hypertension; D72.819 Decreased white blood cell count, unspecified; E78.5 Hyperlipidemia, unspecified; J98.01 Acute bronchospasm; R74.01 Elevation of levels of liver transaminase levels
CPT/HCPCS: 0241U-QW; 36415; 71275-TC; 76705-TC; 80053; 82550; 82962; 82977; 83735; 84100; 84484; 85025; 85610; 85730; 86850; 86900; 86901; 93005; 93010; 99285-25; J0131; Q9967